=== PATIENT | female | born 2005 | race Caucasian/White ===

== ENCOUNTER 2024-10-02 15:36 | Emergency (ER) | payer OTHER, MEDICAID, SELFPAY ==
[2024-10-02 15:37] VITALS: BP 134/84; PULSE 107; RESP 16; TEMP 36.8; O2SAT 100; BMI 30.1
--- NOTE | 2024-10-02 15:42 | CM.ED ---
Social Work SW received warm hand off from Yovani and from [facility]. Patient has been assessed and determined to be in need of inpatient psychiatric hospitalization due to suicidal ideations with intent. Once medically cleared, [facility] will work on placement. Imani Hernandez, ELEMENTARY READING TUTOR, MEDICARE SPECIALIST
--- NOTE | 2024-10-02 16:17 | EKG12_ITS ---
Test Reason : DYSRHYTHMIA Blood Pressure : */* mmHG Vent. Rate : 84 BPM Atrial Rate : 84 BPM P-R Int : 152 ms QRS Dur : 82 ms QT Int : 354 ms P-R-T Axes : 41 49 44 degrees QTcB Int : 418 ms Normal sinus rhythm with sinus arrhythmia Normal ECG Confirmed by BETSY INGRAM, TOSHIA ([id number]), editor at large MAGED HUTTON ([id number]) on 10/04/2024 7:07:23 AM Referred By: Confirmed By: TOSHIA MEYER MD
[2024-10-02 16:32] LABS: Absolute Lymphocyte Count 2.92 X10^3/uL (0.83-4.51); Absolute Neutrophil Count 6.8 X10^3/uL (2.0-7.7); Basophil# 0.08 X10^3/uL; Basophil% 0.7 % (0-1); Eosinophil# 0.11 X10^3/uL; Hematocrit 44.6 % (37-47); Hemoglobin 14.8 g/dL (12.0-15.0); Lymphocyte # 2.92 X10^3/ul (0.83-4.51); Lymphocyte % 26.7 % (19-41); Mean Corp Hgb Conc 33.2 g/dL (32-36); Mean Corpuscular Hgb 28.6 pg (27.0-32.0); Mean Corpuscular Volume 86.1 fL (81-99); Mean Platelet Vol. 8.9 fl (6.2-12.0); Monocyte% 9.2 % (0-10); NRBC Flagged by Analyzer 0 % (0-5); Neutrophil # 6.77 X10^3/uL (2.7-7.7); Platelet Count 332 K/mm3 (150-450); RBC Distribution Width CV 13.3 % (11.6-14.6); RBC Distribution Width SD 41.2 fl (35.1-43.9); Red Blood Count 5.18 M/mm3 (4.2-5.4); White Blood Count 10.9 K/mm3 (4.4-11.0)
[2024-10-02 16:33] LABS: Color, Urine Yellow (Yellow); Glucose, Dipstick Normal (Normal); Ketone-Dipstick Negative (Negative); Leukocyte Esterase-Dipstick 25 /ul (Negative); Nitrite-Dipstick Negative (Negative); Occult Blood-Urine 10 /ul (Negative); Protein-Dipstick 30 mg/dl (Negative); Urine Bilirubin Dipstick Negative (Negative); Urine Clarity Clear (Clear); Urine Urobilinogen Normal (Normal)
--- NOTE | 2024-10-02 16:37 | EX.ED.DYSGE1 ---
HPI History of Present Illness Chief Complaint: Suicidal Narrative Narrative: Chief complaint and HPI: Suicidal ideation. 18-year-old female with past medical history of depression on Wellbutrin presents for evaluation of suicidal ideation. Patient states she has been having increased suicidal ideation over the last 2 weeks. She denies plan but wrote a suicide note. She has engaged in self-harm tendencies with cutting to the hips. She endorses good sleep hygiene and appetite. Patient follows with a counselor but does not see psychiatrist. She has been admitted in the past to an inpatient psychiatric facility due to attempted Tylenol overdose. She denies any homicidal ideation. Denies any visual or auditory hallucinations. Denies tobacco, alcohol, drug abuse. Denies . Last menstrual cycle 2 weeks ago denies any fever, chills, shortness of breath, chest pain abdominal pain, nausea, vomiting. Review of systems: See HPI Medications: As listed on the chart Allergies: As listed on the chart PFSH: Per chart Vital signs: As listed on the chart. Reviewed. Physical exam: Gen: A&O x3 Head: Normocephalic, atraumatic Eyes: No sclera icterus, conjunctiva clear, PERRL, EOMI ENT: Moist mucous membranes Neck: Trachea midline, No JVD CV: RRR, no murmurs, no peripheral edema Resp: Lungs CTA BL, no w/r/c GI: Abd soft, non-distended, non-tender, no r/r/g Musc: Full ROM, no deformity, superficial lacerations to the left hip from self-harm Skin: Warm, dry Neuro: Alert, oriented, grossly intact, sensation intact Psych: Cooperative, intermittent tearfulness PFSH PFSH Medical History (Updated 10/02/24 @ 16:17 by Samira Tee) Depression Anxiety Home Medications ?Medication ?Instructions ?Recorded ?Last Taken ?Type bupropion HCl 100 mg tablet 300 mg PO DAILY 10/02/24 Unknown History Allergy/AdvReac Type Severity Reaction Status Date / Time No Known Allergies Allergy Verified 10/02/24 15:40 Surgical History (Updated 10/02/24 @ 16:17 by Samira Tee) History of removal of ovarian cyst Social History Smoking Status: Never smoker EXAM Physical Exam Const Vital Signs: 10/02/24 15:37 Temperature 98.2 F Temperature Source Oral Pulse Rate 107 H Respiratory Rate 16 Blood Pressure 134/84 H Blood Pressure Mean 100 Pulse Ox 100 Oxygen Delivery Method Room Air MDM MDM MDM Narrative Medical decision making narrative: 18-year-old female with past medical history of depression on Wellbutrin presents for evaluation of suicidal ideation. Differential diagnosis includes but is not limited to suicidal ideation, self-harm tendencies, depression. Given that patient endorses increasing suicidal ideation with self-harm tendency and wrote a suicide note, I do think she would benefit from inpatient psychiatric facility placement. Patient was evaluated by outpatient resources prior to arrival and they would like inpatient psychiatric placement as well. Patient and father were informed of this decision and confirmed understanding. Patient will be pink slipped. Psychiatric laboratory workup ordered for clearance. CBC without leukocytosis or anemia. BMP relatively unremarkable. negative. UA negative for UTI. Urine drug screen negative. Patient is cleared for inpatient psychiatric facility placement. She was accepted to [facility]. Patient will be monitored in the emergency department until transfer can be completed. Patient was updated of all the results and confirmed understanding of the plan. EKG: Interpreted by me/EM physician: EKG shows normal sinus rhythm with sinus arrhythmia. No acute ischemic changes. Heart rate 84. Impression: 1. Suicidal ideation 2. Self-harm tendencies 3. Depression Lab Data Labs: Laboratory Results - last 24 hr 10/02/24 10/02/24 16:11 16:12 WBC 10.9 RBC 5.18 Hgb 14.8 Hct 44.6 MCV 86.1 MCH 28.6 MCHC 33.2 RDW Std Deviation 41.2 RDW Coeff of Silvia 13.3 Plt Count 332 MPV 8.9 Immature Gran % (Auto) 0.400 Neut % (Auto) 62.0 Lymph % (Auto) 26.7 [place] % (Auto) 9.2 Eos % (Auto) 1.0 Baso % (Auto) 0.7 Absolute Neuts (auto) 6.8 Absolute Lymphs (auto) 2.92 Nucleated RBC % 0 Sodium 139 Potassium 3.9 Chloride 108 H Carbon Dioxide 22.0 Anion Gap 10 BUN 15 Creatinine 0.84 Estim Creat Clear Calc 93.20 Est GFR (MDRD) Af Amer 111 Est GFR (MDRD) Non-Af 91 BUN/Creatinine Ratio 17.9 Glucose 87 Calcium 9.8 Serum , Qual NEGATIVE Urine Color Yellow Urine Clarity Clear Urine pH 6.0 Ur Specific [place] 1.020 Urine Protein 30 H Urine Glucose (UA) Normal Urine Ketones Negative Urine Occult Blood 10 H Urine Nitrite Negative Urine Bilirubin Negative Urine Urobilinogen Normal Ur Leukocyte Esterase 25 H Urine RBC 0-5 SEEN Urine WBC 0-5 SEEN Ur Squamous Epith Cells 5-10 SEEN Urine Bacteria 2+ Urine Mucus 1+ Urine Opiates Screen NEGATIVE Urine Methadone Screen NEGATIVE Ur Barbiturates Screen NEGATIVE Ur Phencyclidine Scrn NEGATIVE Ur Amphetamines Screen NEGATIVE MDMA (Ecstasy) Screen NEGATIVE U Benzodiazepines Scrn NEGATIVE Urine Cocaine Screen NEGATIVE U Cannabinoids Screen NEGATIVE Ur Drug Screen Comment Ethyl Alcohol < 3.0 Discharge Plan Triage Chief Complaint: Suicidal ED Provider: Wilber Jones Dx/Rx/DC Orders Prescriptions: No Action bupropion HCl 100 mg tablet 300 mg PO DAILY Rx Instructions: administer 6 hours apart Primary Care Provider: Rebekah Rodriguez NP Referrals: [facility] Doctor,Out of [Non-Staff] - Print Language: Persian
[2024-10-02 16:39] LABS: Red Blood Cells-Urine 0-5 SEEN /hpf (0-5); White Blood Cells 0-5 SEEN /hpf (0-5)
[2024-10-02 16:40] LABS: Bacteria 2+ /hpf (None Seen); Mucous, Urine 1+ /hpf (<or=2+); Squamous Epithelial Cells - UA 5-10 SEEN /hpf (5-10)
[2024-10-02 16:49] LABS: Amphetamine Urine NEGATIVE (<1000 ng/mL); Barbiturate Urine VISTA NEGATIVE (< 200 ng/mL); Benzodiazepine Urine VISTA NEGATIVE (< 200 ng/mL); Cocaine Urine VISTA NEGATIVE (< 300 ng/mL); Ecstacy Urine VISTA NEGATIVE (< 500 ng/mL); Methadone Urine VISTA NEGATIVE (< 300 ng/mL); PCP Urine VISTA NEGATIVE (< 25 ng/mL); THC Urine VISTA NEGATIVE (< 50 ng/mL); Vista UDS pH Range 5
[2024-10-02 16:58] LABS: Alcohol, Blood (Medical)-Serum < 3.0 mg/dL
[2024-10-02 17:01] LABS: Internal QC Validated? YES +Cl - CLEAR BKGD; Pregnancy, Serum, hCG Quali. NEGATIVE Negative
[2024-10-02 17:08] LABS: Anion Gap 10 (5-15); BUN 15 mg/dL (7-18); BUN/Creat Ratio 17.9 RATIO (10-20); Calcium,Total 9.8 mg/dL (8.5-10.1); Chloride 108 mmol/L (98-107); Creatinine, Serum 0.84 mg/dL (0.55-1.02); EST Glomerular Filtration Rate 91 mL/min (>60); Est Glom Filt Rate - Afr Amer 111 mL/min (>60); Glucose 87 mg/dL (74-106); Potassium 3.9 mmol/L (3.5-5.1); Sodium Level 139 mmol/L (136-145)
--- NOTE | 2024-10-02 18:42 | ED.RN ---
[phone]
--- NOTE | 2024-10-02 21:06 | ED.RN ---
Report given to [facility] ingot supervisor Vijay.
[2024-10-02 23:02] VITALS: BP 134/84; PULSE 107; RESP 16; TEMP 36.8; O2SAT 100
[2024-10-02 23:28] VITALS: BP 113/82; PULSE 84; RESP 19; O2SAT 99
== END 2024-10-02 23:48 ==
LOC: ED 16:54
PROVIDERS: Emergency Provider Surgery; PCP Nurse Practitioner Family; Visit Provider Surgery
DX: R45.851 Suicidal ideations (principal); F32.A Depression, unspecified; Z79.899 Other long term (current) drug therapy
CPT/HCPCS: 80048; 80307; 81001; 82077; 84703; 85025; 93005; 99284

== ENCOUNTER 2025-03-12 19:24 | Emergency (ER) | payer OTHER, MEDICAID, SELFPAY ==
[2025-03-12 19:24] VITALS: BP 118/76; PULSE 69; RESP 18; TEMP 37; O2SAT 99; BMI 31.1
--- NOTE | 2025-03-12 19:42 | ED.VIS.GI ---
HPI HPI - GI History of Present Illness Chief Complaint: Abd Pain Informant: patient Abdominal Pain/Flank Pain Onset: Days (3) Context: Gradual Onset Timing: Continuous Quality: Sharp Location: Epigastric and RUQ Worsened by: Nothing Relieved by: Nothing Nausea/Vomiting/Emesis GI Symptom: Negative for Nausea or Vomiting Diarrhea/Melena/Hematochezia GI Symptom: Negative for Diarrhea, Melena or Hematochezia Associated Symptoms Associated Symptoms: Negative for Dysuria, Frequency or Hematuria LMP: 2 weeks ago Narrative Narrative: Patient presents with upper abdominal pain that has been getting worse over the past 3 days. Patient states it is gradually getting worse. Patient states it is mainly over the upper abdomen but worse on the right. Patient denies any radiation of the pain. Patient states nothing makes it worse and nothing makes it better. Patient denies any nausea or vomiting. Patient denies any diarrhea, melena, or hematochezia. Patient denies any dysuria, frequency, or hematuria. Patient states her last menstrual period was approximately 2 weeks ago. PFSH PFS Medical History Depression Anxiety Home Medications ?Medication ?Instructions ?Recorded ?Last Taken ?Type bupropion HCl 100 mg tablet 300 mg PO DAILY 10/02/24 Unknown History Allergy/AdvReac Type Severity Reaction Status Date / Time No Known Allergies Allergy Verified 03/12/25 19:27 Surgical History History of removal of ovarian cyst Social History household members: family housing: house Smoking Status: Never smoker ROS ROS ED Constitutional Constitutional ED: Denies chills or fever(s) Eyes Eyes: Denies blurry vision or change in vision ENT ENT ED: Denies rhinorrhea or sore throat Cardiovascular Cardiovascular: Denies chest pain or palpitations Respiratory/Chest Respiratory/Chest: Denies cough or dyspnea Gastrointestinal Gastrointestinal: Reports abdominal pain; Denies nausea or vomiting Genitourinary Genitourinary ED: Denies dysuria or hematuria Musculoskeletal Musculoskeletal: Denies back pain or neck pain Integumentary Denies abscess or rash Neurologic Neurologic: Denies headache(s) or weakness Allergic/Immunologic Allergic/Immunologic ED: Denies mouth swelling or urticaria EXAM Physical Exam Const Vital Signs: 03/12/25 19:24 Temperature 98.6 F Temperature Source Oral Pulse Rate 69 Respiratory Rate 18 Blood Pressure 118/76 Blood Pressure Mean 90 Pulse Ox 99 Oxygen Delivery Method Room Air Positive well nourished and well developed General Appearance ED: well developed and NAD HEENT Reports moist mucous membranes normocephalic and atraumatic Neck supple and no JVD Resp normal respiratory effort and clear to auscultation bilaterally Cardio regular rate and regular rhythm GI non-distended Palpation: soft and tender epigastric, LUQ, RUQ and Myrick's sign; Negative for guarding or rebound tenderness present Neuro CN's II-XII intact bilaterally, moves all extremities and no sensory deficits noted Sensorium / Orientation: alert Motor Exam: strength 5/5 throughout Psych mental status grossly normal MDM MDM MDM Narrative Medical decision making narrative: Differential diagnosis includes cholecystitis, cholelithiasis, pancreatitis, gastroenteritis, peptic ulcer disease, duodenal ulcer, pyelonephritis, urinary tract infection, and viral illness. CBC will be obtained to assess for leukocytosis and anemia. Comprehensive metabolic profile will be obtained to assess for hepatic function, renal function, and electrolyte abnormality. Lipase will be obtained to assess for pancreatitis. Serum hCG will be obtained to assess for . Right upper quadrant ultrasound will be obtained to assess for cholecystitis and cholelithiasis. Urinalysis will be obtained to assess for urinary tract infection and hematuria. History & Record Review Additional record(s) reviewed:: Prior ED visit and Prior labs Lab Data Attestation: I reviewed the patient's lab results. Lab results narrative: CBC was reviewed. There is a slight leukocytosis of 12.4. Comprehensive metabolic profile was reviewed and was essentially within normal limits. Lipase was reviewed and was elevated to 40. Serum hCG was reviewed and was negative. Urinalysis was reviewed. There is no evidence of urinary tract infection or hematuria. Labs: Laboratory Results - last 24 hr 03/12/25 03/12/25 19:31 20:08 WBC 12.4 H RBC 4.59 Hgb 13.1 Hct 38.6 MCV 84.1 MCH 28.5 MCHC 33.9 RDW Std Deviation 38.7 RDW Coeff of Silvia 12.8 Plt Count 283 MPV 9.7 Immature Gran % (Auto) 0.200 Neut % (Auto) 55.4 Lymph % (Auto) 33.3 [place] % (Auto) 9.1 Eos % (Auto) 1.4 Baso % (Auto) 0.6 Absolute Neuts (auto) 6.9 Absolute Lymphs (auto) 4.12 Nucleated RBC % 0 Sodium 137 Potassium 4.1 Chloride 101 Carbon Dioxide 22.3 Anion Gap 13 BUN 20 H Creatinine 0.74 Estim Creat Clear Calc 106.81 Est GFR (MDRD) Non-Af 119 BUN/Creatinine Ratio 27.2 H Glucose 83 Calcium 9.2 Total Bilirubin 0.56 AST 29 ALT 20 Alkaline Phosphatase 67 Total Protein 7.0 Albumin 4.1 Globulin 2.9 Albumin/Globulin Ratio 1.4 Lipase 240 H Serum , Qual NEGATIVE Urine Color Straw Urine Clarity Clear Urine pH 6.5 Ur Specific [place] 1.010 Urine Protein Negative Urine Glucose (UA) Normal Urine Ketones Negative Urine Occult Blood Negative Urine Nitrite Negative Urine Bilirubin Negative Urine Urobilinogen Normal Ur Leukocyte Esterase Negative Urine RBC 0 SEEN Urine WBC 0 SEEN Ur Squamous Epith Cells 0-5 SEEN Urine Bacteria 1+ Urine Mucus 0 SEEN Radiography Diagnostic Testing: Clinical Impression(s) from Imaging Studies Gallbladder Ultrasound 03/12/25 19:53 IMPRESSION: Trace gallbladder sludge. No sonographic evidence of cholelithiasis or acute cholecystitis. Reading Location: [id number] Right upper quadrant ultrasound was obtained. There is trace amount of gallbladder sludge. There is no evidence of cholelithiasis or cholecystitis. This was interpreted by the radiologist and was also independently reviewed by myself. Treatment and Re-Evaluation :: Patient was given IV fluids, morphine, and Zofran. Patient was feeling better on reevaluation. Patient was advised of her findings. Patient was given prescription for short course of [place]. Patient was instructed to start with a liquid diet and advance her diet as tolerated. Patient was instructed to follow-up with her primary care physician in 3 to 5 days. Patient was instructed to return if worse in any way. Patient understood and was agreeable with the plan. All questions were answered. Discharge Plan Triage Chief Complaint: Abd Pain ED Provider: Maxime Mejias Dx/Rx/DC Orders Clinical Impression: Pancreatitis, Acute upper abdominal pain Instructions: ED Pancreatitis Prescriptions: No Action bupropion HCl 100 mg tablet 300 mg PO DAILY Rx Instructions: administer 6 hours apart Primary Care Provider: Rebekah Rodriguez NP Referrals: Rebekah Rodriguez ADMINISTRATIVE EXECUTIVE, ADMINISTRATIVE EXECUTIVE-C [Primary Care Provider] - 3-5 Days Print Language: Kyrgyz Disposition Disposition: Home, Self Care
--- NOTE | 2025-03-12 19:53 | US_ITS ---
PROCEDURE: GALLBLADDER 03/12/2025 REASON FOR EXAM: PAIN COMPARISON: None FINDINGS: Liver: Grossly normal size and echotexture. Length of 13.5 cm. Gallbladder: Length of 7.0 cm. No echogenic stones. There is trace layering sludge. No wall thickening or pericholecystic fluid. Negative sonographic Myrick's sign per technologist report. Common bile duct: Normal measuring 4 mm in diameter . Pancreas: Visualized portions are sonographically unremarkable. Other: Visualized portions of the right kidney are unremarkable. No right upper quadrant ascites. US/Gallbladder IMPRESSION: Trace gallbladder sludge. No sonographic evidence of cholelithiasis or acute c holecystitis. Reading Location: [facility]
--- NOTE | 2025-03-12 19:53 | US_ITS ---
PROCEDURE: GALLBLADDER 03/12/2025 REASON FOR EXAM: PAIN COMPARISON: None FINDINGS: Liver: Grossly normal size and echotexture. Length of 13.5 cm. Gallbladder: Length of 7.0 cm. No echogenic stones. There is trace layering sludge. No wall thickening or pericholecystic fluid. Negative sonographic Myrick's sign per technologist report. Common bile duct: Normal measuring 4 mm in diameter . Pancreas: Visualized portions are sonographically unremarkable. Other: Visualized portions of the right kidney are unremarkable. No right upper quadrant ascites. US/Gallbladder IMPRESSION: Trace gallbladder sludge. No sonographic evidence of cholelithiasis or acute c holecystitis. Reading Location: [facility]
[2025-03-12 20:03] LABS: Hematocrit 38.6 % (37-47); Hemoglobin 13.1 g/dL (12.0-15.0); Immature Granulocytes Count 0.030 X10^3/uL (0.0-0.0); Mean Corp Hgb Conc 33.9 g/dL (32-36); Mean Corpuscular Volume 84.1 fL (81-99); Mean Platelet Vol. 9.7 fl (6.2-12.0); NRBC Flagged by Analyzer 0 % (0-5); Platelet Count 283 K/mm3 (150-450); RBC Distribution Width CV 12.8 % (11.6-14.6); RBC Distribution Width SD 38.7 fl (35.1-43.9); Red Blood Count 4.59 M/mm3 (4.2-5.4); White Blood Count 12.4 K/mm3 (4.4-11.0)
[2025-03-12] MEDS: 0.9% Normal Saline (1000mL) 1,000 ML 999 ML IV (20:03)
[2025-03-12 20:11] LABS: Mucous, Urine 0 SEEN /hpf (<or=2+); Red Blood Cells-Urine 0 SEEN /hpf (0-5)
[2025-03-12 20:12] LABS: Internal QC Validated? YES +Cl - CLEAR BKGD; Pregnancy, Serum, hCG Quali. NEGATIVE Negative; Record Kit Lot#, Serum Preg. 0000962302
[2025-03-12 20:12] LABS: Color, Urine Straw (Yellow); Glucose, Dipstick Normal (Normal); Ketone-Dipstick Negative (Negative); Leukocyte Esterase-Dipstick Negative /ul (Negative); Nitrite-Dipstick Negative (Negative); Occult Blood-Urine Negative /ul (Negative); Protein-Dipstick Negative (Negative); Specific Gravity, Urine 1.010 (1.002-1.030); Urine Bilirubin Dipstick Negative (Negative)
[2025-03-12 20:30] LABS: Squamous Epithelial Cells - UA 0-5 SEEN /hpf (5-10)
[2025-03-12 20:35] LABS: Lipase 240 U/L (13-75)
[2025-03-12 20:57] LABS: AST(SGOT) 29 U/L (<=31); Alanine Aminotransfer ALT/SGPT 20 U/L (<=34); Albumin, Serum 4.1 g/dL (3.5-5.0); Alkaline Phosphatase 67 U/L (35-104); Anion Gap 13 (5-15); BUN 20 mg/dL (4-19); BUN/Creat Ratio 27.2 RATIO (10-20); Calcium,Total 9.2 mg/dL (7.6-11.0); Carbon Dioxide 22.3 mmol/L (21.0-32.0); Chloride 101 mmol/L (98-108); Estimated Creatinine Clearance 106.81 ml/min (50-250); Globulin 2.9 g/dL (2.2-4.2); Glucose 83 mg/dL (70-99); Potassium 4.1 mmol/L (3.3-5.1)
[2025-03-12 21:24] VITALS: BP 110/70; PULSE 72; RESP 18; O2SAT 99
[2025-03-12 21:36] VITALS: BP 110/70; PULSE 72; RESP 18; TEMP 37; O2SAT 99
== END 2025-03-12 21:37 | disposition home or self-care (01) ==
PROVIDERS: Emergency Provider Emergency Medicine; PCP Nurse Practitioner Family; Visit Provider Emergency Medicine
DX: K85.90 Acute pancreatitis without necrosis or infection, unspecified (principal); R10.10 Upper abdominal pain, unspecified; F41.9 Anxiety disorder, unspecified; F32.A Depression, unspecified
CPT/HCPCS: 76705; 80053; 81001; 83690; 84703; 85025; 96361; 96374; 96375; 99282; A4216; J2405

== ENCOUNTER 2025-05-13 16:55 | Emergency (ER) | payer OTHER, MEDICAID, SELFPAY ==
[2025-05-13 16:56] VITALS: BP 121/86; PULSE 93; RESP 20; TEMP 37.1; O2SAT 100; BMI 31.1
--- NOTE | 2025-05-13 17:36 | EX.ED.DYSGE1 ---
HPI History of Present Illness Chief Complaint: Abd Pain Narrative Narrative: Patient is a 19-year-old female presenting to the emergency department for lower abdominal pain. Patient has a past medical history of an ovarian cyst that was removed years ago and is supposed to have her gallbladder removed in May. States that she had lower abdominal pain that started about 4 hours ago. States this does not feel like the pain associated with her gallbladder that she has had recently. States that the pain is all across her lower abdomen not worse on the right or left. Reports it is fairly constant. Feels like a cramping pain. Denies any dysuria, hematuria, fevers, chills, nausea or vomiting. Denies any diarrhea or constipation. Has been stooling normally. She denies being sexually active. Denies any vaginal bleeding, discharge, vaginal pain. States that she does not remember if this is how the pain was when she had her ovarian cyst. Did not take anything for pain prior to arrival. [facility] Medical History Depression Anxiety Home Medications ?Medication ?Instructions ?Recorded ?Last Taken ?Type bupropion HCl 100 mg tablet 300 mg PO DAILY 10/02/24 Unknown History Allergy/AdvReac Type Severity Reaction Status Date / Time No Known Allergies Allergy Verified 05/13/25 16:58 Surgical History History of removal of ovarian cyst Social History household members: family housing: house Smoking Status: Never smoker ROS ROS ED ROS Narrative see HPI EXAM Physical Exam Narrative Exam Narrative: Vital signs: Reviewed General: Alert and orientedx3. No acute distress HEENT: Head is normocephalic and atraumatic, sinuses nontender, pupils equal round and reactive. Nares are patent. Oropharynx and throat exams normal. Neck: Supple without lymphadenopathy nontender Cardiovascular: Regular rate and rhythm, no murmurs. No rubs or gallops. Normal S1 and S2 Respiratory: Clear to auscultation bilaterally. No wheezes, rales, rhonchi Abdominal: Soft and tender to palpation across the lower abdomen. Some very mild tenderness to palpation of the right upper quadrant, epigastric and left upper quadrants. Normal bowel sounds. No guarding or rebound. Extremities: No tenderness. No bruising. Normal range of motion. Normal sensation. Skin: No rash or redness. Neurological: Cranial nerves II through XII are grossly intact. Normal strength and sensation. Normal cerebellar function The rest of the physical exam is unremarkable Const Vital Signs: 05/13/25 16:56 05/13/25 18:46 05/13/25 20:00 Temperature 98.7 F Temperature Source Oral Pulse Rate 93 Respiratory Rate 20 H Blood Pressure 121/86 H 112/79 129/84 H Blood Pressure Mean 97 90 99 Pulse Ox 100 99 Oxygen Delivery Method Room Air Room Air 05/13/25 21:05 Temperature 98.7 F Temperature Source Pulse Rate 93 Respiratory Rate 18 Blood Pressure 108/61 Blood Pressure Mean 76 Pulse Ox 99 Oxygen Delivery Method MDM MDM MDM Narrative Medical decision making narrative: Patient is a 19-year-old female presenting to the emergency department for abdominal pain. Patient was seen and examined. Vitals are stable. Patient resting bed comfortably no acute distress. Differential includes but is not limited to: UTI, appendicitis, colitis, pancreatitis, less likely cholecystitis, choledocholithiasis, ovarian torsion Patient given morphine and Zofran for symptomatic control. Labs and CT imaging ordered. Urinalysis and urine ordered. Patient is not sexually active states she has never been, I do not have concern for any STDs or tubo-ovarian abscess. Will start with a CT abdomen and if there is a large ovarian cyst we will proceed with a transvaginal ultrasound to assess for possible ovarian torsion. CBC with no leukocytosis and a normal hemoglobin. CMP with no significant abnormalities. Lipase within normal limits. Urinalysis with no evidence of UTI. Urine is negative. CT shows a left adnexal cystic structure measuring 3.0 x 2.4 cm which may reflect a left ovarian cyst with some inflammation. Mild pelvic free fluid. Ruptured ovarian cyst is not entirely excluded. Scattered small bowel wall thickening may reflect enteritis. No bowel obstruction. Mildly thickened urinary bladder wall which may reflect cystitis vs nondistention; consider correlation with urinalysis. Given the cyst with some inflammation and mild pelvic free fluid, discussed obtaining transvaginal ultrasound with the patient and she is agreeable to rule out ovarian torsion. US shows left ovarian cyst measuring up to 4.1 cm, possibly hemorrhagic. No specific follow-up indicated. Blood flow is preserved in bilateral ovaries; no evidence of torsion. Patient was reevaluated and updated on the US findings. Recommended taking motrin at home for pain control and following up with her COMMUNITY ENGAGEMENT COORDINATOR as soon as possible. Instructed to return to the ED immediately if she develops any new or worsening symptoms. Patient agreeable to plan. Discharged home in stable addition. Clinical impression Hemorrhagic ovarian cyst Lab Data Labs: Laboratory Results - last 24 hr 05/13/25 05/13/25 17:17 17:50 WBC 10.7 RBC 4.67 Hgb 13.6 Hct 39.6 MCV 84.8 MCH 29.1 MCHC 34.3 RDW Std Deviation 41.5 RDW Coeff of Silvia 13.4 Plt Count 261 MPV 10.1 Immature Gran % (Auto) 0.200 Neut % (Auto) 55.8 Lymph % (Auto) 31.6 [place] % (Auto) 10.2 H Eos % (Auto) 1.6 Baso % (Auto) 0.6 Absolute Neuts (auto) 6.0 Absolute Lymphs (auto) 3.38 Nucleated RBC % 0 Sodium 139 Potassium 3.9 Chloride 103 Carbon Dioxide 23.8 Anion Gap 12 BUN 12 Creatinine 0.89 Estim Creat Clear Calc 96.14 Est GFR (MDRD) Non-Af 94 BUN/Creatinine Ratio 13.7 Glucose 100 H Calcium 9.1 Total Bilirubin 0.84 AST 25 ALT 15 Alkaline Phosphatase 65 Total Protein 7.2 Albumin 4.2 Globulin 3.1 Albumin/Globulin Ratio 1.4 Lipase 25 Urine Color Straw Urine Clarity Clear Urine pH 7.0 Ur Specific [place] 1.005 Urine Protein Negative Urine Glucose (UA) Normal Urine Ketones Negative Urine Occult Blood Negative Urine Nitrite Negative Urine Bilirubin Negative Urine Urobilinogen Normal Ur Leukocyte Esterase Negative Urine RBC 0-5 SEEN Urine WBC 0-5 SEEN Ur Squamous Epith Cells 0-5 SEEN Urine Bacteria 0 SEEN Urine Mucus 0 SEEN Urine Test Negative Radiography Diagnostic Testing: Clinical Impression(s) from Imaging Studies Abdomen/Pelvis CT 05/13/25 18:35 IMPRESSION: Left adnexal cystic structure measuring 3.0 x 2.4 cm which may reflect a left ovarian cyst with some inflammation. Mild pelvic free fluid. Ruptured ovarian cyst is not entirely excluded. Scattered small bowel wall thickening may reflect enteritis. No bowel obstruction. Mildly thickened urinary bladder wall which may reflect cystitis vs nondistention; consider correlation with urinalysis. Reading Location: [id number] Transvaginal US 05/13/25 19:53 IMPRESSION: Left ovarian cyst measuring up to 4.1 cm, possibly hemorrhagic. No specific follow-up indicated. Blood flow is preserved in bilateral ovaries; no evidence of torsion. Reading Location: [facility] Discharge Plan Triage Chief Complaint: Abd Pain ED Provider: Eli Lee Dx/Rx/DC Orders Clinical Impression: Hemorrhagic cyst of left ovary Instructions: Treatment for Ovarian Cysts, ED Ovarian Cyst Prescriptions: No Action bupropion HCl 100 mg tablet 300 mg PO DAILY Rx Instructions: administer 6 hours apart Primary Care Provider: Rebekah Rodriguez NP Referrals: Your COMMUNITY ENGAGEMENT COORDINATOR [Other] - 2 Days Rebekah Rodriguez NP, SOFTWARE QUALITY TEST ENGINEER-C [Primary Care Provider] - Activity Restrictions/Additional Instructions: Take Motrin at home for pain control. Return to the ED with any worsening abdominal pain, nausea, vomiting, fevers. Follow-up with your COMMUNITY ENGAGEMENT COORDINATOR as soon as possible. Your evaluation in the Emergency Department did not reveal any acute reason for admission. However, I want to emphasize that you may be early in the course of a disease process or illness even if it is not present. For this reason you should follow-up within 24 hours for reevaluation with either your primary care physician or if necessary back here in the Emergency Department. You should return to the Emergency Department immediately if your symptoms worsen or new symptoms develop. Print Language: Polish Disposition Disposition: Home, Self Care Discharge Date/Time: 05/13/25 21:09
[2025-05-13 17:57] LABS: Hematocrit 39.6 % (37-47); Hemoglobin 13.6 g/dL (12.0-15.0); Immature Granulocytes Count 0.020 X10^3/uL (0.0-0.0); Mean Corp Hgb Conc 34.3 g/dL (32-36); Mean Corpuscular Volume 84.8 fL (81-99); Mean Platelet Vol. 10.1 fl (6.2-12.0); NRBC Flagged by Analyzer 0 % (0-5); Platelet Count 261 K/mm3 (150-450); RBC Distribution Width CV 13.4 % (11.6-14.6); RBC Distribution Width SD 41.5 fl (35.1-43.9); Red Blood Count 4.67 M/mm3 (4.2-5.4); White Blood Count 10.7 K/mm3 (4.4-11.0)
[2025-05-13 17:58] LABS: Mucous, Urine 0 SEEN /hpf (<or=2+)
[2025-05-13 18:21] LABS: Internal QC Validated? YES +Cl - CLEAR BKGD; Pregnancy, Urine Negative Negative; Record Kit Lot#,Urine Preg 964736
[2025-05-13 18:23] LABS: Lipase 25 U/L (13-75)
[2025-05-13 18:26] LABS: AST(SGOT) 25 U/L (<=31); Alanine Aminotransfer ALT/SGPT 15 U/L (<=34); Albumin, Serum 4.2 g/dL (3.5-5.0); Alkaline Phosphatase 65 U/L (35-104); Anion Gap 12 (5-15); BUN 12 mg/dL (4-19); BUN/Creat Ratio 13.7 RATIO (10-20); Calcium,Total 9.1 mg/dL (7.6-11.0); Carbon Dioxide 23.8 mmol/L (21.0-32.0); Chloride 103 mmol/L (98-108); Estimated Creatinine Clearance 96.14 ml/min (50-250); Globulin 3.1 g/dL (2.2-4.2); Glucose 100 mg/dL (70-99); Potassium 3.9 mmol/L (3.3-5.1)
[2025-05-13 18:27] LABS: Color, Urine Straw (Yellow); Glucose, Dipstick Normal (Normal); Ketone-Dipstick Negative (Negative); Leukocyte Esterase-Dipstick Negative /ul (Negative); Nitrite-Dipstick Negative (Negative); Occult Blood-Urine Negative /ul (Negative); Protein-Dipstick Negative (Negative); Specific Gravity, Urine 1.005 (1.002-1.030); Urine Bilirubin Dipstick Negative (Negative)
--- NOTE | 2025-05-13 18:35 | CT_ITS ---
PROCEDURE: ABDOMEN/PELVIS W IV CONT ONLY 05/13/2025 REASON FOR EXAM: ABDOMINAL PAIN TECHNIQUE: Procedure Code: [id number] Modality: CT Procedure: ABDOMEN/PELVIS W IV CONT ONLY Coronal and Sagittal reconstruction series were provided. CONTRAST: 100 mL of Isovue 370 One or more dose reduction techniques were used (e.g., Automated exposure control, adjustment of the mA and/or kV according to patient size, use of iterative reconstruction technique. RADIATION DOSE SUMMARY: DLP: 570 mGycm COMPARISON: None FINDINGS: Limited sections of the lung bases demonstrate no focal pulmonary mass or consolidations. The liver, spleen, pancreas, and both adrenal glands demonstrate no acute findings. The gallbladder is unremarkable. The stomach is unremarkable. Scattered small bowel wall thickening may reflect enteritis. No bowel obstruction. The appendix is not clearly identified, although there are no secondary signs of appendicitis. No colonic obstruction. Mild pelvic free fluid. No free air. The kidneys are unremarkable. Mildly thickened urinary bladder wall which may reflect cystitis vs nondistention; consider correlation with urinalysis. The pelvic structures are intact. Left adnexal cystic structure measuring 3.0 x 2.4 cm which may reflect a left ovarian cyst with some inflammation. Ruptured ovarian cyst is not entirely excluded. No significant lymphadenopathy. The aorta and IVC demonstrate no acute findings. Visualized osseous structures demonstrate no acute abnormality. CT/Abdomen/Pelvis W IV Cont ONLY IMPRESSION: Left adnexal cystic structure measuring 3.0 x 2.4 cm which may reflect a left o varian cyst with some inflammation. Mild pelvic free fluid. Ruptured ovarian cyst is not entirely excluded. Scattered small bowel wall thickening may reflect enteritis. No bowel obstruct ion. Mildly thickened urinary bladder wall which may reflect cystitis vs nondistenti on; consider correlation with urinalysis. Reading Location: [id number]
[2025-05-13 18:46] VITALS: BP 112/79; O2SAT 99
[2025-05-13 19:06] LABS: Red Blood Cells-Urine 0-5 SEEN /hpf (0-5); Squamous Epithelial Cells - UA 0-5 SEEN /hpf (5-10)
--- NOTE | 2025-05-13 19:53 | US_ITS ---
PROCEDURE: TRANSVAGINAL NON- 05/13/2025 REASON FOR EXAM: LEFT SIDED CYST WITH PAIN RULE OUT TORSION TECHNIQUE: Procedure Code: USTVAG Modality: US Procedure: TRANSVAGINAL NON- COMPARISON: Correlation with abdominal CT same day 05/13/2025. FINDINGS: The anteverted uterus appears normal in size and smooth in contour, measuring 7.1 x 4.5 x 4 cm. No discrete uterine myoma is seen. No abnormal collection within the uterine cavity. Endometrial stripe complex appears within normal limits measuring up to 0.8 cm in thickness. Arcuate uterine morphology at the fundus noted. The right ovary has a normal sonographic appearance measuring 2.4 x 1.5 x 1.4 cm. The left ovary measures 5.3 x 4.7 x 2.3 cm, and contains a cyst measuring 4.1 x 3.6 x 1.5 cm, with internal low-level echogenicity, probable hemorrhagic cyst. Blood flow is demonstrated within both ovaries on color Doppler, no evidence of torsion. No adnexal mass or significant free fluid is seen in the pelvis. US/Transvaginal Non- IMPRESSION: Left ovarian cyst measuring up to 4.1 cm, possibly hemorrhagic. No specific fo llow-up indicated. Blood flow is preserved in bilateral ovaries; no evidence of torsion. Reading Location: [facility]
[2025-05-13 20:00] VITALS: BP 129/84
[2025-05-13 21:05] VITALS: BP 108/61; PULSE 93; RESP 18; TEMP 37.1; O2SAT 99
== END 2025-05-13 21:09 | disposition home or self-care (01) ==
PROVIDERS: Emergency Provider Student in an Organized Health Care Education/Training Program; PCP Nurse Practitioner Family; Visit Provider Student in an Organized Health Care Education/Training Program
DX: N83.202 Unspecified ovarian cyst, left side (principal); F32.A Depression, unspecified; F41.9 Anxiety disorder, unspecified; R10.30 Lower abdominal pain, unspecified
CPT/HCPCS: 74177; 76830; 80053; 81001; 81025; 83690; 85025; 96374; 96375; 99283; Q9967; J2405